=== PATIENT | female | born 1970 | race Caucasian/White ===

== ENCOUNTER 2019-10-05 08:10 | Emergency (ER) | payer SELFPAY ==
--- NOTE | 2019-10-05 08:44 | EDM.PDOC ---
<Adama Arshad - Last Filed: 10/05/19 14:08> ED HPI GENERAL MEDICAL PROBLEM - General Chief Complaint: Abdominal Pain Stated Complaint: ABDOMINAL PAIN Time Seen by Provider: 10/05/19 08:34 - History of Present Illness INITIAL COMMENTS - FREE TEXT/NARRATIVE: 49 year old white female comes to the emergency department today with complaint of chronic abdominal pain that is worse today. Pain originally began a few months after having an appendectomy around December of 2017. Pain is described as an intermittent burning sensation that she usually rates as a 4-5/10 in the left abdominal area. The pain comes on 3-4 times each week and lasts form a few hours to all day depending on the episode. Patient states that the pain is not correlated with any food or activity that she has noticed. Pt takes Tums and Gas X frequently during the week, however the thing that seems to relieve the pain best is to rest with her feet up. Patient also takes Aleve 3 tablets at a time frequently for headaches. Patient was seen in the [facility] for this problem about 6 months ago and refereed to Dr Michelle OSMAN for evaluation. Patents state that a uterine fibroids were found, but Dr Martinez did not believe that these would be causing the type of pain she was describing in her abdomen. Patient was given an order for Miralax to take ever day for constipation. Patient states that last night around 1900 she was sitting on her couch when she had a sudden onset of severe left sided abdominal pain. This episode is more severe than normal and is not resolving which is why she came to the emergency department to be seen. Patient states that she feels the pain in her left lower quadrant, however on assessment patient indicated increased pain in the right upper quadrant with deep palpation. Patient denies any nausea, vomiting, or constipation at this time. Left Lower Abdomen Pain Score (Numeric/FACES): 8 - Related Data Allergies Allergy/AdvReac Type Severity Reaction Status Date / Time No Known Allergies Allergy Verified 10/05/19 20:02 Home Meds: Home Meds Pantoprazole Sodium [Protonix] 40 mg PO Q24H #30 tablet. 10/05/19 [Rx] Sucralfate [Carafate] 1 gm PO QIDACANDBED #24 cup 10/05/19 [Rx] ED ROS GENERAL - Review of Systems Review Of Systems: See Below Constitutional: Reports: No Symptoms HEENT: Reports: No Symptoms Respiratory: Reports: No Symptoms Cardiovascular: Reports: No Symptoms Endocrine: Reports: No Symptoms GI/Abdominal: Reports: Abdominal Pain, Diarrhea (Patient has been up to the restroom multiple times with loose stools since being in the ED) : Reports: Frequency (Pt has voided several times while in the ED) Musculoskeletal: Reports: No Symptoms Skin: Reports: No Symptoms Neurological: Reports: No Symptoms Psychiatric: Reports: No Symptoms Hematologic/Lymphatic: Reports: No Symptoms Immunologic: Reports: No Symptoms ED EXAM, GI/ABD - Physical Exam Exam: See Below Exam Limited By: No Limitations General Appearance: Alert, WD/WN, No Apparent Distress Head: Atraumatic, Normocephalic Neck: Normal Inspection, Supple, Non-Tender, Full Range of Motion Respiratory/Chest: No Respiratory Distress, Lungs Clear, Normal Breath Sounds, No Accessory Muscle Use, Chest Non-Tender Cardiovascular: Normal Peripheral Pulses, Regular Rate, Rhythm, No Edema, No Gallop, No JVD, No Murmur, No Rub GI/Abdominal Exam: Normal Bowel Sounds, Tender (left upper quadrant tenderness) Neurological: Alert, Oriented, CN II-XII Intact, Normal Cognition, Normal Gait, No Motor/Sensory Deficits Psychiatric: Normal Affect, Normal Mood Skin Exam: Warm, Dry, Intact, Normal Color, No Rash Departure - Departure Disposition: Home, Self-Care 01 Condition: Good Clinical Impression: Dyspepsia, Upper abdominal pain - Discharge Information Prescriptions: Sucralfate [Carafate] 1 gm PO QIDACANDBED #24 cup Pantoprazole Sodium [Protonix] 40 mg PO Q24H #30 tablet. Instructions: Abdominal Pain, Adult, [id number] Referrals: PCP,None [Primary Care Provider] - Forms: ED Department Discharge Additional Instructions: Return to the emergency department for any worsening symptoms or conditions. Setup and establish care with a local primary care provider to oversee, treat, and manage your ongoing abdominal pain. Follow up in the clinic in 1 week for reassessment and follow up ([phone]). Take Protonix 40mg by mouth every morning 1 hour before morning meal. Take Carafate 1gm 4 times per day 30 minutes before each meal and before bedtime It is recommended that you stop taking Aleve for headache pain and change to Tylenol as Aleve can cause worsening abdominal pain. Sepsis Event Note (ED) - Evaluation Sepsis Screening Result: No Definite Risk <Andrey Mejia - Last Filed: 10/05/19 20:50> Course - Vital Signs Last Recorded V/S: Last Vital Signs Temp 36.2 C 10/05/19 08:31 Pulse 89 10/05/19 08:31 Resp 16 10/05/19 08:31 BP 157/87 H 10/05/19 08:31 Pulse Ox 96 10/05/19 08:31 - Orders/Labs/Meds Labs: Laboratory Tests 10/05/19 10/05/19 10/05/19 Range/Units 09:29 09:29 13:15 WBC 14.19 H (3.98-10.04) K/mm3 RBC 4.29 (3.98-5.22) M/mm3 Hgb 13.7 (11.2-15.7) gm/dl Hct 42.1 (34.1-44.9) % MCV 98.1 H (79.4-94.8) fl MCH 31.9 (25.6-32.2) pg MCHC 32.5 (32.2-35.5) g/dl RDW Std Deviation 43.6 (36.4-46.3) fL Plt Count 240 (182-369) K/mm3 MPV 10.8 (9.4-12.3) fl Neut % (Auto) 81.7 H (34.0-71.1) % Lymph % (Auto) 9.2 L (19.3-51.7) % [place] % (Auto) 6.4 (4.7-12.5) % Eos % (Auto) 2.2 (0.7-5.8) Baso % (Auto) 0.3 (0.1-1.2) % Neut # (Auto) 11.59 H (1.56-6.13) K/mm3 Lymph # (Auto) 1.31 (1.18-3.74) K/mm3 [place] # (Auto) 0.91 H (0.24-0.36) K/mm3 Eos # (Auto) 0.31 (0.04-0.36) K/mm3 Baso # (Auto) 0.04 (0.01-0.08) K/mm3 Manual Slide Review Abnormal smear Sodium 136 (136-145) mEq/L Potassium 4.1 (3.5-5.1) mEq/L Chloride 101 (98-107) mEq/L Carbon Dioxide 26 (21-32) mEq/L Anion Gap 13.1 (5-15) BUN 19 H (7-18) mg/dL Creatinine 1.2 H (0.55-1.02) mg/dL Est Cr Clr Drug Dosing 50.05 mL/min Estimated GFR (MDRD) 48 (>60) mL/min BUN/Creatinine Ratio 15.8 (14-18) Glucose 120 H (74-106) mg/dL Calcium 10.4 H (8.5-10.1) mg/dL Total Bilirubin 0.4 (0.2-1.0) mg/dL AST 26 (15-37) U/L ALT 35 (14-59) U/L Alkaline Phosphatase 53 (46-116) U/L Total Protein 8.1 (6.4-8.2) g/dl Albumin 3.8 (3.4-5.0) g/dl Globulin 4.3 gm/dL Albumin/Globulin Ratio 0.9 L (1-2) Lipase 142 (73-393) U/L Urine Color Yellow (Yellow) Urine Appearance Clear (Clear) Urine pH 6.5 (5.0-8.0) Ur Specific [place] 1.020 (1.005-1.030) Urine Protein Negative (Negative) Urine Glucose (UA) Negative (Negative) Urine Ketones Negative (Negative) Urine Occult Blood 2+ H (Negative) Urine Nitrite Negative (Negative) Urine Bilirubin Negative (Negative) Urine Urobilinogen 0.2 (0.2-1.0) Ur Leukocyte Esterase 1+ H (Negative) Meds: Medications Discontinued Medications Generic Name Dose Route Start Last Admin Trade Name Freq PRN Reason Stop Dose Admin Al Hydroxide/Mg Hydroxide 30 0 ml 10/05/19 09:13 10/05/19 09:30 ml/ Lidocaine HCl 15 ml PO 10/05/19 09:14 45 ml ONETIME ONE Administration Lactated Ringer's 1,000 mls @ 999 mls/hr 10/05/19 11:20 10/05/19 11:51 Ringers, Lactated IV 10/05/19 12:20 999 mls/hr .BOLUS ONE Administration Acetaminophen 1,000 mg/ Premix 100 mls @ 400 mls/hr 10/05/19 11:36 10/05/19 11:53 IV 10/05/19 11:50 400 mls/hr NOW ONE Administration Sucralfate 1 gm 10/05/19 10:08 10/05/19 10:31 Carafate PO 10/05/19 10:09 1 gm ONETIME ONE Administration - Re-Assessments/Exams Free Text/Narrative Re-Assessment/Exam: 10/05/19 20:49 I worked with Darren Arshad during the initial evaluation exam treatment plan and disposition. Departure - Departure Time of Disposition: 13:41
[2019-10-05] MEDS ORDERED: Alum Hydrox/Mag Hydrox/Simeth 30 ML, Lidocaine 2% 15 ML PO ONE ×2 (09:13)
[2019-10-05] MEDS ORDERED: Sucralfate 1 GM Tab PO ONE (10:08)
[2019-10-05] MEDS ORDERED: Lactated Ringers 1,000 ML IV ONE (11:20)
[2019-10-05] MEDS ORDERED: Acetaminophen 1,000 MG in Premix Bag 1 BAG IV ONE (11:36)
--- NOTE | 2019-10-05 13:35 | CR ---
Abdomen: Supine view of the abdomen was obtained as well as upright study. Calcifications are seen within both sides of the abdomen. I do not think these are renal in origin. Calcifications may represent calcified lymph nodes or other dystrophic calcifications. Bowel gas pattern is normal. No free air is seen. Bony structures unremarkable. Impression: 1. Calcifications believed to be nonacute. 2. Other portions of the 2 view abdominal study are unremarkable. Diagnostic code #2 This report was dictated in MDT
== END 2019-10-05 14:15 | disposition home or self-care (01) ==
LOC: JD.ED 08:10
DX: R10.13 Epigastric pain (principal); Z79.899 Other long term (current) drug therapy
CPT/HCPCS: 36415; 74019; 80053; 81003; 83690; 85025; 96361; 96365; 99284; A9270; J0131; J7120

== ENCOUNTER 2019-10-05 19:33 | Emergency (ER) | payer SELFPAY ==
[2019-10-05] MEDS ORDERED: Sodium Chloride 0.9% 1,000 ML IV SCH (20:15)
[2019-10-05] MEDS ORDERED: Ondansetron 4 MG/2 ML SDV IVPUSH ONE (20:16)
[2019-10-05] MEDS ORDERED: HYDROmorphone 0.5 MG/0.5 ML Syringe IVPUSH ONE ×2 (20:16→23:04)
--- NOTE | 2019-10-05 20:22 | EDM.PDOC ---
ED HPI GENERAL MEDICAL PROBLEM - General Chief Complaint: Abdominal Pain Stated Complaint: STOMACH PAIN GETTING WORSE Time Seen by Provider: 10/05/19 20:02 Source of Information: Reports: Patient History Limitations: Reports: No Limitations - History of Present Illness INITIAL COMMENTS - FREE TEXT/NARRATIVE: This is a 49-year-old female. She was here earlier due to abdominal pain thought to be related to dyspepsia. She has had chronic abdominal pain for the last 6 months and it seems to go from the epigastric area to the left abdominal area. She still has her gallbladder though she does not have her appendix. Over the last several days has been increasing pain and burning in the left abdomen. She came in earlier she had no nausea vomiting or diarrhea though she has not been eating. After she went home she tried to eat some toast but vomited it up. She has had no fever. Take 3 Aleve frequently for her headaches and was told to stop doing that since it is hard on the stomach. She comes back this evening because she has had marked increased pain in her left flank and left lower quadrant abdominal pain. She says it is 100 times worse than it was this morning. Has no history of diverticulitis. It was noted previous visit that her white count was 14.19 with neutrophils of 81.7. Abdomen Pain Score (Numeric/FACES): 10 - Related Data Allergies Allergy/AdvReac Type Severity Reaction Status Date / Time No Known Allergies Allergy Verified 10/05/19 20:02 Home Meds: Home Meds Pantoprazole Sodium [Protonix] 40 mg PO Q24H #30 tablet. 10/05/19 [Rx] Sucralfate [Carafate] 1 gm PO QIDACANDBED #24 cup 10/05/19 [Rx] Past Medical History - Past Surgical History GI Surgical History: Reports: Appendectomy Social & Family History - Tobacco Use Smoking Status *Q: Current Every Day Smoker Years of Tobacco use: 25 Packs/Tins Daily: 1 ED ROS GENERAL - Review of Systems Review Of Systems: See Below Constitutional: Denies: Fever, Chills HEENT: Reports: No Symptoms Respiratory: Reports: No Symptoms Cardiovascular: Reports: No Symptoms Endocrine: Reports: No Symptoms GI/Abdominal: Reports: Abdominal Pain, Diarrhea, Nausea, Vomiting. Denies: Bloody Stool, Constipation : Reports: No Symptoms Musculoskeletal: Reports: No Symptoms Skin: Reports: No Symptoms Neurological: Reports: No Symptoms Psychiatric: Reports: No Symptoms Hematologic/Lymphatic: Reports: No Symptoms ED EXAM, GI/ABD - Physical Exam Exam: See Below Exam Limited By: No Limitations General Appearance: Alert, WD/WN, No Apparent Distress Eyes: Bilateral: Normal Appearance Ears: Normal External Exam Throat/Mouth: Normal Lips, Normal Voice, No Airway Compromise Head: Normocephalic Neck: Supple Respiratory/Chest: No Respiratory Distress, Lungs Clear, Normal Breath Sounds Cardiovascular: Regular Rate, Rhythm, No Murmur GI/Abdominal Exam: Soft, Other (She does not appear to be tender in the abdomen on palpation and not particularly tender in the right upper quadrant. She is slightly tender in the left upper quadrant but more tender deep into the left flank and left lower quadrant area. I do not feel any guarding or rebound noted. She does not appear to have peritoneal irritation at this time.) Extremities: Normal Inspection, Normal Range of Motion Neurological: Alert, Oriented Psychiatric: Normal Affect, Normal Mood Skin Exam: Warm, Dry Course - Vital Signs Last Recorded V/S: Last Vital Signs Temp 97.8 F 10/05/19 19:57 Pulse 108 H 10/05/19 19:57 Resp 16 10/05/19 19:57 BP 148/95 H 10/05/19 19:57 Pulse Ox 97 10/05/19 19:57 - Orders/Labs/Meds Orders: Active Orders 24 hr Category Date Time Status Abdomen Pelvis w Cont [CT] Stat Exams 10/05/19 20:18 Taken Sodium Chloride 0.9% [Normal Saline] 1,000 ml Med 10/05/19 20:15 Active IV ASDIRECTED Sodium Chloride 0.9% [Saline Flush] Med 10/05/19 22:52 Active 10 ml FLUSH ONETIME PRN cefTRIAXone [Rocephin] 1 gm Med 10/06/19 00:34 Ordered Sodium Chloride 0.9% [Normal Saline] 100 ml IV ONETIME Medication Orders Sodium Chloride (Normal Saline) 1,000 mls @ 1,000 mls/hr IV ASDIRECTED MIGUEL ANGEL Last Admin: 10/05/19 20:43 Dose: 1,000 mls/hr Documented by: HERMMIC Ceftriaxone Sodium 1 gm/ (Sodium Chloride) 100 mls @ 200 mls/hr IV ONETIME ONE Stop: 10/06/19 01:03 Sodium Chloride (Saline Flush) 10 ml FLUSH ONETIME PRN PRN Reason: Keep Vein Open Last Admin: 10/05/19 23:20 Dose: 10 ml Documented by: LELE Labs: Laboratory Tests 10/05/19 10/05/19 Range/Units 20:40 20:40 WBC 16.54 H (3.98-10.04) K/mm3 RBC 3.97 L (3.98-5.22) M/mm3 Hgb 13.1 (11.2-15.7) gm/dl Hct 39.0 (34.1-44.9) % MCV 98.2 H (79.4-94.8) fl MCH 33.0 H (25.6-32.2) pg MCHC 33.6 (32.2-35.5) g/dl RDW Std Deviation 42.9 (36.4-46.3) fL Plt Count 281 (182-369) K/mm3 MPV 10.6 (9.4-12.3) fl Neut % (Auto) 86.1 H (34.0-71.1) % Lymph % (Auto) 7.5 L (19.3-51.7) % [place] % (Auto) 5.9 (4.7-12.5) % Eos % (Auto) 0.2 L (0.7-5.8) Baso % (Auto) 0.1 (0.1-1.2) % Neut # (Auto) 14.24 H (1.56-6.13) K/mm3 Lymph # (Auto) 1.24 (1.18-3.74) K/mm3 [place] # (Auto) 0.97 H (0.24-0.36) K/mm3 Eos # (Auto) 0.04 (0.04-0.36) K/mm3 Baso # (Auto) 0.02 (0.01-0.08) K/mm3 Manual Slide Review Abnormal smear Sodium 136 (136-145) mEq/L Potassium 3.7 (3.5-5.1) mEq/L Chloride 99 (98-107) mEq/L Carbon Dioxide 25 (21-32) mEq/L Anion Gap 15.7 H (5-15) BUN 17 (7-18) mg/dL Creatinine 1.4 H (0.55-1.02) mg/dL Est Cr Clr Drug Dosing 42.90 mL/min Estimated GFR (MDRD) 40 (>60) mL/min BUN/Creatinine Ratio 12.1 L (14-18) Glucose 116 H (74-106) mg/dL Calcium 9.1 (8.5-10.1) mg/dL Total Bilirubin 0.6 (0.2-1.0) mg/dL AST 19 (15-37) U/L ALT 32 (14-59) U/L Alkaline Phosphatase 49 (46-116) U/L C-Reactive Protein 1.4 H* (<1.0) mg/dL Total Protein 7.8 (6.4-8.2) g/dl Albumin 3.7 (3.4-5.0) g/dl Globulin 4.1 gm/dL Albumin/Globulin Ratio 0.9 L (1-2) Meds: Medications Generic Name Dose Route Start Last Admin Trade Name Jarvis PRN Reason Stop Dose Admin Sodium Chloride 1,000 mls @ 1,000 mls/hr 10/05/19 20:15 10/05/19 20:43 Normal Saline IV 1,000 mls/hr ASDIRECTED MIGUEL ANGEL Administration Ceftriaxone Sodium 1 gm/ 100 mls @ 200 mls/hr 10/06/19 00:34 Sodium Chloride IV 10/06/19 01:03 ONETIME ONE Sodium Chloride 10 ml 10/05/19 22:52 10/05/19 23:20 Saline Flush FLUSH 10 ml ONETIME PRN Administration Keep Vein Open Discontinued Medications Generic Name Dose Route Start Last Admin Trade Name Jarvis PRN Reason Stop Dose Admin Diatrizoate Meglum/Diatrizoate Sod 120 ml 10/05/19 22:52 10/05/19 23:20 Gastrografin 37% PO 10/05/19 22:53 120 ml ONETIME ONE Administration Hydromorphone HCl 0.5 mg 10/05/19 20:16 10/05/19 20:43 Dilaudid IVPUSH 10/05/19 20:17 0.5 mg ONETIME ONE Administration Hydromorphone HCl 0.5 mg 10/05/19 23:04 10/05/19 23:13 Dilaudid IVPUSH 10/05/19 23:05 0.5 mg ONETIME ONE Administration Iopamidol 100 ml 10/05/19 22:52 10/05/19 23:20 Isovue-300 (61%) IVPUSH 10/05/19 22:53 100 ml ONETIME ONE Administration Ondansetron HCl 4 mg 10/05/19 20:16 10/05/19 20:43 Zofran IVPUSH 10/05/19 20:17 4 mg ONETIME ONE Administration - Radiology Interpretation Free Text/Narrative:: 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 There is fat stranding and fluid in the left perinephric space no other acute findings are noted. - Re-Assessments/Exams Free Text/Narrative Re-Assessment/Exam: 10/06/19 00:35 Spoke to the patient regarding the CT scan. She is going to need to see a urologist. What she would prefer to do it is to follow-up with Dr. Clinton Holley and be referred to a urologist in [place]. I explained that this kind of stone will need to be broken up with lithotripsy for it to pass and that she is going to have some continued pain periodically. I will provide something for pain and nausea. I will also put her on some antibiotics at this time since her white count is elevated though she is not having a fever or any sort of urinary tract type symptoms. Departure - Departure Time of Disposition: 00:36 Disposition: Home, Self-Care 01 Condition: Fair Clinical Impression: Left nephrolithiasis, Hydronephrosis of left kidney, Renal colic on left side Leukocytosis Qualifiers: Leukocytosis type: unspecified Qualified Code(s): D72.829 - Elevated white blood cell count, unspecified - Discharge Information *PRESCRIPTION DRUG MONITORING PROGRAM REVIEWED*: Not Applicable *COPY OF PRESCRIPTION DRUG MONITORING REPORT IN PATIENT ONUR: Not Applicable Instructions: Renal Colic, [id number], Kidney Stones, [id number] Referrals: PCP,None [Primary Care Provider] - Lilly Montanez MD [Physician] - Forms: ED Department Discharge Additional Instructions: Call Dr. Alonzo Monday morning for an appointment because you need to be referred to a urologist to break up this left kidney stone with lithotripsy, take your antibiotics faithfully once you get them Monday or Monday, get the pain medication and nausea medicine from the [employer] machine in the lobby before you leave, if there is marked worsening of your symptoms or you develop a fever greater than 101 return to the ER for reevaluation Sepsis Event Note (ED) - Evaluation Sepsis Screening Result: No Definite Risk - Focused Exam Vital Signs: Vital Signs Temp Pulse Resp BP Pulse Ox 10/05/19 19:57 97.8 F 108 H 16 148/95 H 97 - My Orders Last 24 Hours: My Active Orders 10/05/19 20:15 Sodium Chloride 0.9% [Normal Saline] 1,000 ml IV ASDIRECTED 10/05/19 20:18 Abdomen Pelvis w Cont [CT] Stat 10/05/19 22:52 Sodium Chloride 0.9% [Saline Flush] 10 ml FLUSH ONETIME PRN 10/06/19 00:34 cefTRIAXone [Rocephin] 1 gm Sodium Chloride 0.9% [Normal Saline] 100 ml IV ONETIME - Assessment/Plan Last 24 Hours: My Active Orders 10/05/19 20:15 Sodium Chloride 0.9% [Normal Saline] 1,000 ml IV ASDIRECTED 10/05/19 20:18 Abdomen Pelvis w Cont [CT] Stat 10/05/19 22:52 Sodium Chloride 0.9% [Saline Flush] 10 ml FLUSH ONETIME PRN 10/06/19 00:34 cefTRIAXone [Rocephin] 1 gm Sodium Chloride 0.9% [Normal Saline] 100 ml IV ONETIME
[2019-10-05] MEDS ORDERED: Diatrizoate Meglumine/Diatrizoate Sodium 37% 120 ML Bottle PO ONE (22:52)
[2019-10-05] MEDS ORDERED: Iopamidol 612 MG/ML 100 ML Bottle IVPUSH ONE (22:52)
[2019-10-05] MEDS ORDERED: Sodium Chloride 0.9% 10 ML Syringe FLUSH PRN (22:52)
[2019-10-06] MEDS ORDERED: cefTRIAXone 1 GM in Sodium Chloride 0.9% 100 ML IV ONE (00:34)
--- NOTE | 2019-10-06 06:31 | CT ---
CT abdomen and pelvis Technique: Multiple axial sections were obtained from above the dome of the diaphragm inferiorly through the pubic symphysis. Intravenous contrast was utilized. Oral contrast has also been given. Delayed images were also obtained through the abdomen and pelvis. Comparison: Previous abdominal x-ray performed earlier on the same day (11:34 AM. Findings: Obstructing calculus is identifiedl within the left renal pelvis at the UPJ measuring 1.0 cm. This correlates to calcification on prior plain film study. Position of this calcification is more lateral than expected on the plain film due to malrotation of the left kidney with anteriorly pointing renal pelvis. Surrounding inflammatory change noted around the left kidney. No additional calcifications are seen within the kidneys. Other findings: Visualized lung bases show minimal atelectasis. Liver contains no focal abnormality. Spleen appears within normal limits. Adrenal glands show no nodule. Pancreas is within normal limits. Aorta shows no aneurysm. No retroperitoneal adenopathy or mesenteric abnormalities are seen. Appendix not definitely visualized. No pelvic mass or adenopathy is appreciated. Bone window settings were reviewed which shows no acute osseous finding. Mild degenerative change is scattered within the spine. Minimal fat-containing umbilical hernia is noted. Impression: 1. 1.0 cm obstructing stone within the left UPJ causing significant obstruction with inflammatory change around the left kidney and findings of forniceal rupture. This obstructing stone correlates to a calcification seen on plain film exam. 2. Other findings which are nonacute as noted above. Diagnostic code #3 This report was dictated in MDT I agree with preliminary report from [facility], finalized on 10/06/19, 12:55 AM Central Daylight Time
== END 2019-10-06 01:20 | disposition home or self-care (01) ==
LOC: JD.ED 19:33
DX: N13.2 Hydronephrosis with renal and ureteral calculous obstruction (principal); D72.829 Elevated white blood cell count, unspecified; F17.210 Nicotine dependence, cigarettes, uncomplicated; Z90.49 Acquired absence of other specified parts of digestive tract
CPT/HCPCS: 36415; 74177; 80053; 85025; 86140; 96365; 96375; 96376; 99284; J0696; J1170; J2405; J7030; J7050; Q9963; Q9967